=== PATIENT | male | born 2000 | race African-American/Black ===

== ENCOUNTER 2021-09-14 00:29 | Emergency (ER) | payer BC, OTHER ==
[~2021-09-14] VITALS: Ht 178 cm; Wt 102.0 kg
[2021-09-14 00:40] VITALS: BP 178/110
--- NOTE | 2021-09-14 01:01 | ED Integumentary General ---
General Chief Complaint: Laceration Stated Complaint: INDEX & MIDDLE FINGER LAC,LEFT HAND Source: patient Exam Limitations: no limitations History of Present Illness Date Seen by Provider: Sep 14, 2021 Time Seen by Provider: 00:45 Initial Comments Patient is a 21-year-old male who presents to the emergency room with a chief complaint of laceration to the index and middle fingers of the left hand dorsal surface. He was getting ready to cut up some chicken to marinated when the knife slipped and he cut the back of his hand. No other complaints of illness or injury recently. He is up-to-date on his tetanus, his last one was about a year ago. Denies any numbness, tingling or weakness to the fingers. All other review of systems reviewed and negative except as stated. Timing/Duration: just prior to arrival Severity: mild Location: hands Possible Cause: other (knife) Associated Symptoms: denies symptoms Allergies and Home Medications Allergies Coded Allergies: No Known Drug Allergies (Unverified , 11/06/11) Patient Home Medication List Home Medication List Reviewed: Yes Review of Systems Review of Systems Constitutional: see HPI Musculoskeletal: no symptoms reported Skin: other (Laceration) Physical Exam Vital Signs Vital Signs - First Documented 09/14/21 00:40 Temp 36.4 Pulse 99 Resp 18 B/P (MAP) 178/110 (132) Pulse Ox 97 O2 Delivery Room Air Capillary Refill : General Appearance: WD/WN, no apparent distress Cardiovascular: regular rate, rhythm Respiratory: no respiratory distress, no accessory muscle use Neurologic/Psychiatric: alert, normal mood/affect, oriented x 3 Skin: normal color, warm/dry, other (2 cm laceration over the dorsum of the left index finger between the PIP and DIP, minimal active bleeding, distal neurovascularly intact. 1-1/2 cm laceration over the proximal interphalangeal joint of middle finger no active bleeding, distal neurovascular intact) Procedures/Interventions Wound Location: Upper Extremities Other Wound Location left middle finger Wound Length (cm): 1.5 Wound's Depth, Shape: superficial, linear Wound Explored: clean Irrigated w/ Saline (ccs): 100 Betadine Prep?: Yes Anesthesia: 1% Lidocaine (1) Volume Anesthetic (ccs): 1 Suture: Ethlion Suture Size: 4-0 Number of Sutures: 1 Layer Closure?: 0 Sterile Dressing Applied?: Yes Wound Location: Upper Extremities Other Wound Location left index finger Wound Length (cm): 2 Wound's Depth, Shape: superficial, linear Wound Explored: clean Irrigated w/ Saline (ccs): 150 Betadine Prep?: Yes Anesthesia: 1% Lidocaine Volume Anesthetic (ccs): 1 Suture: Ethlion Suture Size: 4-0 Number of Sutures: 4 Layer Closure?: 0 Sterile Dressing Applied?: Yes Progress/Results/Core Measures Results/Orders Vital Signs/I&O 09/14/21 00:40 Temp 36.4 Pulse 99 Resp 18 B/P (MAP) 178/110 (132) Pulse Ox 97 O2 Delivery Room Air Departure Impression Primary Impression: Laceration of finger of left hand Qualified Codes: S61.211A - Laceration without foreign body of left index finger without damage to nail, initial encounter Additional Impression: Laceration of middle finger of left hand without complication Qualified Codes: S61.213A - Laceration without foreign body of left middle finger without damage to nail, initial encounter Disposition: HOME, SELF-CARE Condition: Stable Departure-Patient Inst. Decision time for Depature: 00:58 Referrals: [facility] [place] MAGED,LOCAL PHYSICIAN (PCP) Primary Care Physician Patient Instructions: Laceration Repair With Stitches ED Add. Discharge Instructions: Keep the wound clean dry and covered for the next couple of days. You can apply a little triple antibiotic ointment over the suture line twice a day for the next 2 days. You can take [id number] Tylenol or ibuprofen as needed for pain. If the wounds become red, swollen, feverish or draining pus please come back to the emergency room for reevaluation. The stitches will need to come out in 10 to 12 days. NAKIAT BLANCO MD Sep 14, 2021 01:01
== END 2021-09-14 01:31 | disposition home or self-care (01) ==
LOC: EDUNIT# 00:29 → ER 00:35
DX: S61.211A Laceration without foreign body of left index finger without damage to nail, initial encounter (principal); S61.213A Laceration without foreign body of left middle finger without damage to nail, initial encounter; W26.0XXA Contact with knife, initial encounter
CPT/HCPCS: 12041